=== PATIENT | male | born 1945 | race Caucasian/White ===

== ENCOUNTER 2019-04-25 07:40 | Outpatient (CLI) | payer MEDICARE, OTHER ==
[2019-04-25 10:22] LABS: ALBUMIN 4.1 g/dL (3.2-5.5); ALBUMIN/GLOBULIN RATIO 1.2 (1.0-2.2); BILIRUBIN,TOTAL 0.5 mg/dL (0.2-1.0); CALCIUM 9.2 mg/dL (8.5-10.3); CREATININE 1.3 mg/dL (0.6-1.2); TOTAL PROTEIN 7.6 g/dL (6.7-8.2)
== END 2019-04-25 07:41 | disposition home or self-care (01) ==
LOC: LAB.S 07:40
PROVIDERS: ATTEND Internal Medicine
DX: N40.1 Benign prostatic hyperplasia with lower urinary tract symptoms (principal); N13.8 Other obstructive and reflux uropathy; Z13.220 Encounter for screening for lipoid disorders; Z13.1 Encounter for screening for diabetes mellitus
CPT/HCPCS: 36415; 80053; 80061; 83036; 83721

== ENCOUNTER 2019-05-09 07:50 | Outpatient (CLI) | payer MEDICARE, OTHER ==
[2019-05-09 17:06] LABS: CHOL/HDL RATIO 3.1 (<5.0); CHOLESTEROL 207 mg/dL; HDL CHOLESTEROL 66 mg/dL; LDL CHOLESTEROL,CALCULATED 130 mg/dL; VLDL CHOLESTEROL 11 mg/dL
[2019-05-09 17:28] LABS: HB2 TOTAL 13.5 g/dL; HEMOGLOBIN A1C 0.51 g/dL; HEMOGLOBIN A1C % 5.6 % (4.6-6.2)
== END 2019-05-09 07:51 | disposition home or self-care (01) ==
LOC: LAB.S 07:50
PROVIDERS: ATTEND Internal Medicine
DX: Z13.220 Encounter for screening for lipoid disorders (principal); Z13.1 Encounter for screening for diabetes mellitus; Z79.899 Other long term (current) drug therapy; E78.5 Hyperlipidemia, unspecified
CPT/HCPCS: 36415; 80061; 83036; 83721

== ENCOUNTER 2020-10-20 07:04 | Outpatient (CLI) | payer MEDICARE, OTHER ==
[2020-10-20 14:22] LABS: ALBUMIN 4.2 g/dL (3.2-5.5); ALBUMIN/GLOBULIN RATIO 1.3 (1.0-2.2); BILIRUBIN,TOTAL 0.4 mg/dL (0.2-1.0); CALCIUM 9.3 mg/dL (8.5-10.3); CREATININE 1.4 mg/dL (0.6-1.2); POTASSIUM 4.5 mmol/L (3.5-5.0); TOTAL PROTEIN 7.4 g/dL (6.7-8.2)
[2020-10-20 14:50] LABS: BASOPHILS # (AUTO) 0.1 10^3/uL (0.0-0.1); BASOPHILS % (AUTO) 0.8 %; EOSINOPHILS # (AUTO) 0.3 10^3/uL (0.0-0.7); EOSINOPHILS % (AUTO) 3.2 %; HCT - HEMATOCRIT 41.4 % (42.0-52.0); HGB - HEMOGLOBIN 13.8 g/dL (14.0-18.0); LYMPHOCYTES # (AUTO) 3.3 10^3/uL (1.5-3.5); LYMPHOCYTES % (AUTO) 42.5 %; MEAN CORPUSCULAR HEMOGLOBIN 31.7 pg (27.0-31.0); MEAN CORPUSCULAR HGB CONC 33.3 g/dL (32.0-36.0); MEAN CORPUSCULAR VOLUME 95.2 fL (80.0-94.0); MEAN PLATELET VOLUME 9.6 fL (7.4-11.4); MONOCYTES # (AUTO) 0.6 10^3/uL (0.0-1.0); MONOCYTES % (AUTO) 7.8 %; NEUTROPHILS # (AUTO) 3.6 10^3/uL (1.5-6.6); NEUTROPHILS % (AUTO) 45.4 %; PLT - PLATELET COUNT 224 10^3/uL (130-450); RED BLOOD COUNT 4.35 10^6/uL (4.70-6.10); RED CELL DISTRIBUTION WIDTH 13.6 % (12.0-15.0); WHITE BLOOD COUNT 7.8 x10^3/uL (4.8-10.8)
== END 2020-10-20 07:05 | disposition home or self-care (01) ==
LOC: LAB.S 07:04
PROVIDERS: ATTEND Registered Nurse
DX: R10.9 Unspecified abdominal pain (principal); M54.5 Low back pain; N40.1 Benign prostatic hyperplasia with lower urinary tract symptoms; N13.8 Other obstructive and reflux uropathy
CPT/HCPCS: 36415; 80053; 80061; 83721; 85025

== ENCOUNTER 2020-12-15 12:06 | Outpatient (CLI) | payer MEDICARE, OTHER ==
--- NOTE | 2020-12-15 13:11 | XRAY Report ---
PROCEDURE: Hip w/Pelvis 2-3V LT INDICATIONS: LEFT HIP PAIN TECHNIQUE: AP pelvis with lateral view(s) of the bilateral hip(s). COMPARISON: None. FINDINGS: Bones: No fractures or dislocations. Hip joint osteoarthritis is prominent in this patient, left gr eater than right. It is near severe on the right aerated is severe on the left with [id number] gwyn culation. Pelvic ring appears intact. No suspicious bony lesions. Soft tissues: The visualized bowel gas pattern is normal. No suspicious soft tissue calcifications. IMPRESSION: Asymmetric severe left and near severe right hip joint osteoarthritis. No trauma. Reviewed by: Pradip May MD on 12/15/2020 1:10 PM PDT Approved by: Pradip May MD on 12/15/2020 1:10 PM PDT Station ID: [id number]
== END 2020-12-15 12:07 | disposition home or self-care (01) ==
LOC: DI.S 12:06
PROVIDERS: ATTEND Physician Assistant
DX: M25.552 Pain in left hip (principal); M16.0 Bilateral primary osteoarthritis of hip

== ENCOUNTER 2021-02-04 11:07 | Outpatient (CLI) | payer MEDICARE, OTHER ==
[2021-02-04 11:37] LABS: BASOPHILS # (AUTO) 0.1 10^3/uL (0.0-0.1); BASOPHILS % (AUTO) 0.6 %; EOSINOPHILS # (AUTO) 0.2 10^3/uL (0.0-0.7); EOSINOPHILS % (AUTO) 1.8 %; HCT - HEMATOCRIT 40.1 % (42.0-52.0); HGB - HEMOGLOBIN 14.1 g/dL (14.0-18.0); LYMPHOCYTES # (AUTO) 3.6 10^3/uL (1.5-3.5); LYMPHOCYTES % (AUTO) 41.6 %; MEAN CORPUSCULAR HEMOGLOBIN 32.4 pg (27.0-31.0); MEAN CORPUSCULAR HGB CONC 35.2 g/dL (32.0-36.0); MEAN CORPUSCULAR VOLUME 92.2 fL (80.0-94.0); MONOCYTES # (AUTO) 0.7 10^3/uL (0.0-1.0); MONOCYTES % (AUTO) 8.7 %; NEUTROPHILS % (AUTO) 47.1 %; PLT - PLATELET COUNT 231 10^3/uL (130-450); RED BLOOD COUNT 4.35 10^6/uL (4.70-6.10); RED CELL DISTRIBUTION WIDTH 13.2 % (12.0-15.0); WHITE BLOOD COUNT 8.5 x10^3/uL (4.8-10.8)
[2021-02-04 11:58] LABS: ALBUMIN 4.4 g/dL (3.2-5.5); ALBUMIN/GLOBULIN RATIO 1.5 (1.0-2.2); BILIRUBIN,TOTAL 0.7 mg/dL (0.2-1.0); CALCIUM 9.6 mg/dL (8.5-10.3); CREATININE 1.3 mg/dL (0.6-1.2); POTASSIUM 4.4 mmol/L (3.5-5.0); TOTAL PROTEIN 7.4 g/dL (6.7-8.2)
[2021-02-04 12:29] LABS: ESTIMATED AVERAGE GLUCOSE 114 mg/dL (70-100); HEMOGLOBIN A1c% 5.6 % (4.27-6.07)
[2021-02-04 12:42] LABS: CREATININE,URINE 140.3 mg/dL; MICROALBUM/CREATININE RATIO,UR 5.7 ug/mg (<30.0); MICROALBUMIN,URINE 0.8 mg/dL (0-300.0)
== END 2021-02-04 11:08 | disposition home or self-care (01) ==
LOC: LAB 11:07
PROVIDERS: ATTEND Physician Assistant
DX: Z01.812 Encounter for preprocedural laboratory examination (principal); N40.1 Benign prostatic hyperplasia with lower urinary tract symptoms; Z79.899 Other long term (current) drug therapy; N13.8 Other obstructive and reflux uropathy
CPT/HCPCS: 36415; 80053; 82043; 82570; 83036; 85025

== ENCOUNTER 2021-04-01 06:17 | Day surgery (SDC) | payer MEDICARE, OTHER ==
[~2021-04-01 06:17] MED LIST: ACETAMINOPHEN 500 MG TABLET PO ONE; CEFAZOLIN SODIUM IN 0.9 % NACL 2 GM/100 ML BAG IV ONE; CELECOXIB 100 MG CAPSULE PO ONE; DEXAMETHASONE 10 MG/ML VIAL ONE
[2021-04-01] MEDS ORDERED: LACTATED RINGERS 1,000 ML IV ONE ×2 (06:45→10:36)
--- NOTE | 2021-04-01 07:12 | ANESTHESIA ---
Pre-Anesthesia VS, & Labs - Diagnosis left hip osteoarthritis - Procedure left total hip arthroplasty Vital Signs: Temp Pulse Resp BP Pulse Ox 36 C L 72 18 141/70 H 98 04/01/21 06:28 04/01/21 06:28 04/01/21 06:28 04/01/21 06:28 04/01/21 06:28 Height: 5 ft 7 in Weight (kg): 83.7 kg Body Mass Index: 28.9 BMI Classification: Overweight - NPO >8 hours Home Medications and Allergies Home Medications: Ambulatory Orders Tamsulosin [Flomax] 0.4 mg PO DAILY 03/25/21 Tamsulosin [Flomax] 0.4 mg PO DAILY 03/25/21 Allergies/Adverse Reactions: Allergies Allergy/AdvReac Type Severity Reaction Status Date / Time No Known Drug Allergies Allergy Verified 03/25/21 13:14 Anes History & Medical History - Anesthetic History Anesthesia Complications: reports: No previous complications - Medical History Cardiovascular: reports: None Pulmonary: reports: None Gastrointestinal: reports: None Urinary: reports: Benign prostate hypertrophy Musculoskeletal: reports: Osteoarthritis Endocrine/Autoimmune: reports: None Skin: reports: None History of Cancer?: No - Surgical History General: reports: Appendectomy, Colonoscopy Exam General: Alert, Oriented x3, Cooperative Dental: WNL Mouth Opening: Greater than 4 Fingerbreadths Mallampati classification: II Thyromental Distance: greater than 6 cm Respiratory: Lungs clear Cardiovascular: Regular rate, Normal S1, Normal S2 Plan Anesthesia Type: Spinal, Fascia Iliaca Block Consent for Procedure(s) Verified and Reviewed: Yes Code Status: Attempt Resuscitation ASA classification: 2-Mild systemic disease Is this case an emergency?: No
[2021-04-01] MEDS ORDERED: ONDANSETRON 4 MG/2 ML VIAL IVP PRN ×2 (07:15→07:25)
[2021-04-01] MEDS ORDERED: ePHEDrine 50 MG/ML VIAL IVP PRN (07:15)
[2021-04-01] MEDS ORDERED: METOCLOPRAMIDE 10 MG/2 ML VIAL IVP PRN (07:15)
[2021-04-01] MEDS ORDERED: ATROPINE ABBOJECT 1 MG/10 ML SYRINGE IVP PRN (07:15)
[2021-04-01] MEDS ORDERED: HYDROmorphone 0.5 MG/0.5 ML SYRINGE IVP PRN (07:15)
[2021-04-01] MEDS ORDERED: fentaNYL 100 MCG/2 ML VIAL IVP PRN (07:15)
[2021-04-01] MEDS ORDERED: MORPHINE 2 MG/ML CARPUJECT IVP PRN (07:15)
[2021-04-01] MEDS ORDERED: NALOXONE 0.4 MG/ML VIAL IVP PRN (07:15)
[2021-04-01] MEDS ORDERED: BUPIVACAINE 0.25% PF 30 ML VIAL ONE (07:16)
[2021-04-01] MEDS ORDERED: VANCOMYCIN 1 GM VIAL ONE (07:16)
[2021-04-01] MEDS ORDERED: DOCUSATE SODIUM 100 MG CAPSULE PO PRN (07:25)
[2021-04-01] MEDS ORDERED: SODIUM CHLORIDE FLUSH 0.9% 10 ML SYRINGE IVP PRN (07:25)
[2021-04-01] MEDS ORDERED: PROPOFOL 500 MG/50 ML 500 MG/50 ML VIAL ONE ×2 (07:26→09:18)
[2021-04-01] MEDS ORDERED: MIDAZOLAM 2 MG/2 ML VIAL ONE (07:26)
[2021-04-01] MEDS ORDERED: TRANEXAMIC ACID 1,000 MG/10 ML VIAL ONE ×2 (07:27→09:50)
[2021-04-01] MEDS ORDERED: BUPIVACAINE 0.5% PF 10 ML VIAL ONE (07:34)
[2021-04-01] MEDS ORDERED: ACETAMINOPHEN 1,000 MG/100 ML 100 ML IV ONE (07:55)
[2021-04-01] MEDS ORDERED: ePHEDrine 50 MG/ML VIAL IVP ONE (07:56)
[2021-04-01] MEDS ORDERED: NS W/20 MEQ KCL 1,000 ML IV SCH ×2 (08:00→22:46)
[2021-04-01] MEDS ORDERED: LACTATED RINGERS 1,000 ML IV SCH (08:00)
[2021-04-01] MEDS ORDERED: PHENYLEPHRINE 10 MG/ML VIAL ONE (08:11)
[2021-04-01] MEDS ORDERED: VANCOMYCIN 1 GM VIAL MC ONE (08:40)
[2021-04-01] MEDS ORDERED: BUPIVACAINE 0.25% PF 30 ML VIAL SUBQ ONE (08:41)
[2021-04-01] MEDS ORDERED: CELECOXIB 100 MG CAPSULE PO SCH (09:00)
[2021-04-01] MEDS ORDERED: ROPIVACAINE 0.5% PF 20 ML AMPULE ONE (10:13)
[2021-04-01] MEDS ORDERED: DEXAMETHASONE 4 MG/ML VIAL ONE (10:14)
--- NOTE | 2021-04-01 10:15 | OPERATIVE REPORT ---
Operative Report - General Procedure Date: 04/01/21 Planned Procedure: Left total hip replacement Pre-Op Diagnosis: Osteoarthritis left hip Procedure Performed: Left total hip replacement: Mckoy [employer] Nephew #5 anthology femoral component, 54 mm R3 3-hole acetabular cup, single cancellous acetabular screw, neutral polyethylene acetabular liner, standard neck offset, 36 mm Oxinium +4 mm femoral head Post Op Diagnosis: Same as preoperative diagnosis - Procedure Note Primary Surgeon: Inocencio Romero MD Secondary Surgeon: Tiago RIVERA Anesthesia Technique: Regional block, Spinal Estimated Blood Loss (mL): 150 Indications: 75-year-old man with pain and disability associated with osteoarthritis left hip. He has had progressive and marked pain now making it hard to do activities of daily living and also activities that enhance quality of life. He had painful and restricted motion left hip. His x-rays showed advanced joint space narrowing left hip, subchondral cyst and some osteophytes consistent with advanced osteoarthritis left hip. He has tried some nonoperative treatment without improvement. Findings: There was a loss of articular cartilage to the entire femoral head, loss of articular cartilage to the acetabular dome. He had good bone quality for press- fit. Complications: None - Other Other Information/Narrative: After satisfactory spinal anesthesia had been achieved, the patient was placed in a lateral decubitus position with the left hip facing superiorly. He was secured in the lateral decubitus position using a pegboard with 2 post securing the torso and 2 posts securing the pelvis. The left hip and left lower extremity were prepped and draped in a sterile manner in the usual fashion. A timeout procedure was performed by the entire operating room team and all were in agreement. A longitudinal incision was made about the lateral left hip beginning at the vastus lateralis ridge of the proximal femur and extending it proximally approximately 3 fingerbreadths above the trochanter. The subcutaneous tissue and fascia crystal were split in line with the incision. The anterior one third of the gluteus medius was detached at the trochanteric inse rtion. The gluteus medius was retracted medially. The hip capsule was exposed and was split in a T-shaped fashion. Part of the anterior hip capsule was excised. The femoral head was dislocated with flexion, adduction and external rotation. An osteotomy was done to the femoral neck using a osteotomy guide. Retractors were placed behind the femoral neck to protect the soft tissues from the oscillating saw. The proximal femur was retracted. 2 acetabular retractors were placed one anteriorly directly against bone to reduce any soft tissue impingement to femoral nerve. The second retractor was placed more posteriorly directly against bone and preventing any impingement against sciatic nerve. The acetabulum was prepared with a large curette. Medialization of the acetabulum was performed with a small acetabular reamer and then widening was done up to a 53 mm reamer the final reamers were placed in approximately 20 degrees anteversion and 45 degrees of abduction. A trial acetabular component was inserted, 53 mm and this fit well. A permanent 54 mm R3 acetabular 3-hole component was then impacted in 40 degrees of abduction and approximately 20 degrees of anteversion. This had good fixation to push pull and rotation. A single 30 mm superior acetabular screw was inserted. The stability of the acetabular cup was very good. A trial acetabular liner was inserted into the cup. The femoral canal was opened with a box osteotome, starting reamer and then a short broach. Broaching was carried out to a #5. Calcar reaming was performed. Good fit and stability to the #4 stem was achieved. Trial reduction was performed. Hip motion was very good and the hip was stable to dislocation maneuvers. The trial components were removed. A permanent acetabular liner was impacted into the acetabular cup. The #5 Anthology femoral stem was impacted and fully seated. The femoral head was impacted on the femoral trunnion. There was good stability to push pull and rotation. A 36 mm +4 head was impacted on the trunnion. The hip was reduced, had good leg length tension and good stability with dislocation maneuvers. 3-minute lavage with dilute Betadine was performed. The hip abductors were repaired to the trochanter with 2 Arthrex fiber minh suture anchors and #1 stratofix suture. The fascia crystal was closed with #1 stratofix. The subcutaneous tissue was closed with 2-0 stratofix. The skin was closed with a 3-0 Monocryl subcuticular closure and Dermabond. He tolerated the procedure well. A physician senior court office assistant was utilized during the procedure to provide retraction and protection of neurovascular structures as well as to facilitate dislocation and reduction of the hip joint.
--- NOTE | 2021-04-01 11:12 | XRAY Report ---
PROCEDURE: Pelvis 1 View INDICATIONS: POSTOP TECHNIQUE: 1 view(s) of the pelvis acquired. COMPARISON: None. FINDINGS: Bones: Patient is status post left total hip arthroplasty. Left hip alignment is anatomic. Moderate right hip joint osteophytic changes are seen. No fractures or dislocations. No suspicious bony lesio ns. Soft tissues: Expected postsurgical changes are noted in lateral left hip soft tissue. Visualized bow el gas pattern is normal. No suspicious soft tissue calcifications. IMPRESSION: Postop changes from left total hip arthroplasty with anatomic hip alignment. Reviewed by: Kraig Lucas MD on 04/01/2021 11:11 AM PDT Approved by: Kraig Lucas MD on 04/01/2021 11:11 AM PDT Station ID: [id number]
--- NOTE | 2021-04-01 11:26 | PHARMACY PROGRESS NOTE ---
- Best Possible Medication History Admit Date and Time: Processed by: Nursing Medication History completed: Yes Patient Interview: Completed (MED REC COMPLEED BY NURSING) As the person ultimately responsible for medication therapy, providers are able to order a medication from an existing home medication list in [facility] via the "Reconcile Routine" prior to Confirmation of that medication by network support. Such practice is discouraged except when the physician, in their clinical judgment, deems that a medical need exists for a medication without regard to previous use.
--- NOTE | 2021-04-01 11:28 | CONSULTATION NOTE ---
Referring Provider Name of Referring Provider:: Dr. Hendricks Consult Date: 04/01/21 Chief Complaint - Chief Complaint Chief Complaint: feel tired, s/p of left total hip replacement History of Present Illness - Admitted From Admitted From:: medical floor - History Obtained From Records Reviewed: [facility] History obtained from: pt Exam Limitations: no - History of Present Illness HPI Comment/Other: This is a 75-Years old male With a past medical history significant for BPH, osteoarthritis, chronic kidney disease, Chronic vision loss, who was just s/p Of left total hip replacement. Medical team was consulted for medical management for this patient. Patient is comfortable at the bed, he denies pain. He report he feel tired and hope he has some sleep now. History - Past Medical History Cardiovascular: reports: None Respiratory: reports: None Endocrine/Autoimmune: reports: None GI: reports: None : reports: Benign prostate hypertrophy HEENT: reports: Chronic vision loss Psych: reports: None Musculoskeletal: reports: Osteoarthritis Derm: reports: None MRSA Hx?: No - Past Surgical History General: reports: Appendectomy, Colonoscopy Meds/Allgy - Home Medications Home Medications: Ambulatory Orders Medication Instructions Recorded Confirmed Tamsulosin [Flomax] 0.4 mg PO DAILY 03/25/21 04/01/21 - Allergies Allergies/Adverse Reactions: Allergies Allergy/AdvReac Type Severity Reaction Status Date / Time No Known Drug Allergies Allergy Verified 03/25/21 13:14 Review of Systems - Constitutional Constitutional: reports: Fatigue. denies: Fever - Eyes Eyes: denies: Pain - Ears, Nose & Throat Ears, Nose & Throat: denies: Ear pain - Cardiovascular Cariovascular: denies: Chest pain, Exertional dyspnea, Decr. exercise tolerance - Respiratory Respiratory: denies: Cough, SOB at rest, SOB with exertion - Gastrointestinal Gastrointestinal: denies: Abdominal pain, Diarrhea, Nausea, Vomiting - Genitourinary Genitourinary: denies: Dysuria - Musculoskeletal Musculoskeletal: denies: Muscle pain - Integumentary Integumentary: denies: Rash - Neurological Neurological: denies: Focal weakness, Headache, Numbness, Seizures, Incoordination, Slurred speech - Psychiatric Psychiatric: denies: Depression Exam - Vital Signs Vital Signs: Vital Signs x48h Temp Pulse Resp BP Pulse Ox 04/01/21 11:26 36.1 C L 62 17 110/56 L 97 04/01/21 11:10 36.4 C L 63 14 108/61 96 04/01/21 11:05 36.4 C L 63 15 108/64 96 04/01/21 11:00 36.5 C 67 15 117/68 99 04/01/21 10:55 36.5 C 75 18 110/69 97 04/01/21 10:50 36.4 C L 73 14 99/60 97 04/01/21 10:45 36.5 C 67 14 110/61 100 04/01/21 10:40 36.4 C L 66 14 106/54 L 100 04/01/21 10:36 36.4 C L 61 14 101/61 100 04/01/21 06:28 36 C L 72 18 141/70 H 98 - Physical Exam General Appearance: positive: No acute distress, Alert. negative: Lethargic Eyes Bilateral: positive: Normal inspection, PERRL, No lid inflammation ENT: positive: ENT inspection nml, No signs of dehydration. negative: Purulent nasal drainage Neck: positive: Nml inspection, Trachea midline. negative: Thyromegaly, Tracheal deviation Respiratory: positive: Chest non-tender, No respiratory distress. negative: Wheezes Cardiovascular: positive: Regular rate & rhythm, No murmur. negative: Tachyc ardia, Bradycardia, Systolic murmur, Diastolic murmur Peripheral Pulses: positive: 2+ Abdomen: positive: Non-tender, Nml bowel sounds, No distention. negative: Tenderness Back: positive: Nml inspection Skin: positive: Color nml, Warm, Dry. negative: Cyanosis Extremities: positive: Non-tender, Nml appearance. negative: Calf tenderness Neurologic/Psychiatric: positive: Oriented x3, Sensation nml. negative: Weakness, Sensory loss, Facial droop, Slurred/abnml speech, Depressed mood/affect Conclusion/Plan - Problem List (1) Osteoarthritis Conclusion/Plan: Patient has a history of osteoarthritis, we will continue pain, work with PT/OT (2) Status post total hip replacement, left Conclusion/Plan: pt just had left total hip replacement. ordered lab test, Continue lab monitor. We will continue pain control, we have physical therapist and occupational therapist evaluation and treatment for pt. DVT prophylaxis is per surgeon, patient is on Lovenox now. Patient is expected to be discharged on tomorrow per surgeon. (3) CKD (chronic kidney disease) Conclusion/Plan: Patient has a history of CKD stage III. It is stable now. We will continue hydration, continue lab monitor. Avoid nephrotoxic agent. (4) BPH (benign prostatic hyperplasia) Conclusion/Plan: We Will resume home Flomax - Lab Results Fish Bones: 04/01/21 11:50 04/01/21 11:50
[2021-04-01 11:55] LABS: BASOPHILS % (AUTO) 0.3 %; EOSINOPHILS % (AUTO) 0.1 %; HGB - HEMOGLOBIN 13.2 g/dL (14.0-18.0); LYMPHOCYTES # (AUTO) 1.4 10^3/uL (1.5-3.5); LYMPHOCYTES % (AUTO) 15.4 %; MEAN CORPUSCULAR HEMOGLOBIN 32.5 pg (27.0-31.0); MEAN CORPUSCULAR HGB CONC 33.8 g/dL (32.0-36.0); MEAN CORPUSCULAR VOLUME 96.1 fL (80.0-94.0); MEAN PLATELET VOLUME 9.3 fL (7.4-11.4); MONOCYTES # (AUTO) 0.1 10^3/uL (0.0-1.0); MONOCYTES % (AUTO) 1.3 %; NEUTROPHILS # (AUTO) 7.4 10^3/uL (1.5-6.6); NEUTROPHILS % (AUTO) 82.6 %; PLT - PLATELET COUNT 184 10^3/uL (130-450); RED BLOOD COUNT 4.06 10^6/uL (4.70-6.10); RED CELL DISTRIBUTION WIDTH 13.4 % (12.0-15.0)
[2021-04-01 12:08] LABS: CREATININE 1.4 mg/dL (0.6-1.2); POTASSIUM 4.2 mmol/L (3.5-5.0)
[2021-04-01] MEDS: ACETAMINOPHEN 500 MG TABLET PO SCH ×2 (12:58→19:11)
[2021-04-01] MEDS: ethyl alcohoL 62% SWAB AMPULE NAS SCH ×2 (12:58→21:28)
[2021-04-01] MEDS: SODIUM CHLORIDE FLUSH 0.9% 10 ML SYRINGE IVP SCH ×2 (12:58→15:37)
--- NOTE | 2021-04-01 12:59 | ANESTHESIA POST OP EVALUATION ---
Anesthesia Post Eval - Post Anesthesia Eval Vitals: Last Vital Signs Temp 36.1 C L 04/01/21 11:26 Pulse 62 04/01/21 11:30 Resp 17 04/01/21 11:30 BP 112/59 L 04/01/21 11:30 Pulse Ox 100 04/01/21 11:30 CV Function Including HR & BP: Stable Pain Control: Satisfactory Nausea & Vomiting: Negative Mental Status: Baseline Respiratory Status: Airway Patent Hydration Status: Satisfactory Anesthesia Complications: None
[2021-04-01] MEDS: oxyCODONE 5 MG TABLET PO PRN ×2 (14:24→19:11)
[2021-04-01] MEDS: ceFAZolin 2 GM in SODIUM CHLORIDE 0.9% 100ML 100 ML IV SCH ×2 (14:34→21:28)
[2021-04-01] MEDS: MORPHINE 2 MG/ML CARPUJECT IVP PRN ×2 (15:36→21:28)
[2021-04-02] MEDS: ACETAMINOPHEN 500 MG TABLET PO SCH ×3 (00:48→12:00)
[2021-04-02] MEDS: SODIUM CHLORIDE FLUSH 0.9% 10 ML SYRINGE IVP SCH ×2 (00:48→08:07)
[2021-04-02] MEDS: oxyCODONE 5 MG TABLET PO PRN ×2 (00:48→08:06)
[2021-04-02] MEDS: MORPHINE 2 MG/ML CARPUJECT IVP PRN ×2 (03:39→10:29)
[2021-04-02 04:52] LABS: BASOPHILS # (AUTO) 0.1 10^3/uL (0.0-0.1); BASOPHILS % (AUTO) 0.3 %; HCT - HEMATOCRIT 34.9 % (42.0-52.0); LYMPHOCYTES # (AUTO) 2.1 10^3/uL (1.5-3.5); LYMPHOCYTES % (AUTO) 10.7 %; MEAN CORPUSCULAR HEMOGLOBIN 32.1 pg (27.0-31.0); MEAN CORPUSCULAR HGB CONC 34.4 g/dL (32.0-36.0); MEAN CORPUSCULAR VOLUME 93.3 fL (80.0-94.0); MEAN PLATELET VOLUME 9.2 fL (7.4-11.4); MONOCYTES % (AUTO) 5.4 %; NEUTROPHILS % (AUTO) 82.9 %; PLT - PLATELET COUNT 208 10^3/uL (130-450); RED BLOOD COUNT 3.74 10^6/uL (4.70-6.10); RED CELL DISTRIBUTION WIDTH 13.2 % (12.0-15.0); WHITE BLOOD COUNT 19.2 x10^3/uL (4.8-10.8)
[2021-04-02 05:00] LABS: CALCIUM 8.9 mg/dL (8.5-10.3); CREATININE 1.3 mg/dL (0.6-1.2); POTASSIUM 4.6 mmol/L (3.5-5.0)
[2021-04-02] MEDS: ethyl alcohoL 62% SWAB AMPULE NAS SCH (08:07)
[2021-04-02 08:22] LABS: BILIRUBIN,URINE NEGATIVE (NEGATIVE); GLUCOSE, URINE (UA) NEGATIVE (NEGATIVE); KETONES,URINE (UA) NEGATIVE (NEGATIVE); LEUKOCYTE ESTERASE, URINE NEGATIVE (NEGATIVE); NITRITE,URINE NEGATIVE (NEGATIVE); OCCULT BLOOD,URINE NEGATIVE (NEGATIVE); PROTEIN,URINE NEGATIVE (NEGATIVE); UROBILINOGEN,URINE 0.2 (NORMAL) E.U./dL (NORMAL)
[2021-04-02 08:32] LABS: BACTERIA,URINE None Seen /HPF (None Seen); CLARITY,URINE CLEAR (CLEAR); RBC,URINE None Seen /HPF (0-5); SQUAMOUS EPITHELIAL CELL,UR NONE SEEN (<= Few)
[2021-04-02] MEDS ORDERED: TAMSULOSIN 0.4 MG CAPSULE PO SCH (09:00)
[2021-04-02] MEDS ORDERED: ENOXAPARIN 40 MG/0.4 ML SYRINGE SUBQ SCH (09:00)
--- NOTE | 2021-04-02 09:11 | PROVIDER PROGRESS NOTE ---
Subjective - General Procedure Date: 04/01/21 Post Op Days: 1 - Review of Systems Wound/Incisions: positive: Dressing dry and intact General: positive: No symptoms Pulmonary: positive: No symptoms Cardiovascular: positive: No symptoms Gastrointestinal: positive: No symptoms Genitourinary: positive: No symptoms Psychiatric: positive: No symptoms - Other Other Information/Narrative: Patient is postop day 1 left total hip arthroplasty. He is doing very well. His pain is well controlled. He denies chest pain, shortness of breath, nausea or vomiting. He has no neurovascular symptoms other than some numbness in the femoral nerve distribution. He had a fascia lot of block. Objective - Patient Data Vital Signs: Vital Signs x48h Temp Pulse Resp BP Pulse Ox 04/02/21 08:12 36.4 C L 77 18 133/48 H 96 04/02/21 05:00 37.0 C 78 20 115/57 L 92 Weight: Weight 03/31/21 04/01/21 04/02/21 23:59 23:59 23:59 Weight (kg) 83.7 kg Intake & Output: Intake and Output Totals x24h 03/31/21 04/01/21 04/02/21 23:59 23:59 23:59 Intake Total 1291.667 568.333 Output Total 450 400 Balance 841.667 168.333 - Lab Results Lab Results: 04/02/21 04:34 04/02/21 04:34 Other Lab Results: Lab Results x24hrs 04/02/21 04/02/21 04/02/21 Range/Units 08:02 04:34 04:34 WBC 19.2 H (4.8-10.8) x10^3/uL RBC 3.74 L (4.70-6.10) 10^6/uL Hgb 12.0 L (14.0-18.0) g/dL Hct 34.9 L (42.0-52.0) % MCV 93.3 (80.0-94.0) fL MCH 32.1 H (27.0-31.0) pg MCHC 34.4 (32.0-36.0) g/dL RDW 13.2 (12.0-15.0) % Plt Count 208 (130-450) 10^3/uL MPV 9.2 (7.4-11.4) fL Neut # (Auto) 16.0 H (1.5-6.6) 10^3/uL Lymph # (Auto) 2.1 (1.5-3.5) 10^3/uL [place] # (Auto) 1.0 (0.0-1.0) 10^3/uL Eos # (Auto) 0.0 (0.0-0.7) 10^3/uL Baso # (Auto) 0.1 (0.0-0.1) 10^3/uL Absolute Nucleated RBC 0.00 x10^3/uL Nucleated RBC % 0.0 /100WBC Sodium 140 (135-145) mmol/L Potassium 4.6 (3.5-5.0) mmol/L Chloride 106 (101-111) mmol/L Carbon Dioxide 23 (21-32) mmol/L Anion Gap 11.0 (6-13) BUN 26 H (6-20) mg/dL Creatinine 1.3 H (0.6-1.2) mg/dL Estimated GFR (MDRD) 54 L (>89) Glucose 154 H (70-100) mg/dL Calcium 8.9 (8.5-10.3) mg/dL Urine Color YELLOW Urine Clarity CLEAR (CLEAR) Urine pH 5.0 (5.0-7.5) PH Ur Specific [place] 1.020 (1.002-1.030) Urine Protein NEGATIVE (NEGATIVE) mg/dL Urine Glucose (UA) NEGATIVE (NEGATIVE) mg/dL Urine Ketones NEGATIVE (NEGATIVE) mg/dL Urine Occult Blood NEGATIVE (NEGATIVE) Urine Nitrite NEGATIVE (NEGATIVE) Urine Bilirubin NEGATIVE (NEGATIVE) Urine Urobilinogen 0.2 (NORMAL) (NORMAL) E.U./dL Ur Leukocyte Esterase NEGATIVE (NEGATIVE) Urine RBC None Seen (0-5) /HPF Urine WBC 4-5 (0-3) /HPF Ur Squamous Epith Cells NONE SEEN (<= Few) Urine Bacteria None Seen (None Seen) /HPF Urine Culture Comments NOT INDICATED 04/01/21 04/01/21 Range/Units 11:50 11:50 WBC 9.0 (4.8-10.8) x10^3/uL RBC 4.06 L (4.70-6.10) 10^6/uL Hgb 13.2 L (14.0-18.0) g/dL Hct 39.0 L (42.0-52.0) % MCV 96.1 H (80.0-94.0) fL MCH 32.5 H (27.0-31.0) pg MCHC 33.8 (32.0-36.0) g/dL RDW 13.4 (12.0-15.0) % Plt Count 184 (130-450) 10^3/uL MPV 9.3 (7.4-11.4) fL Neut # (Auto) 7.4 H (1.5-6.6) 10^3/uL Lymph # (Auto) 1.4 L (1.5-3.5) 10^3/uL [place] # (Auto) 0.1 (0.0-1.0) 10^3/uL Eos # (Auto) 0.0 (0.0-0.7) 10^3/uL Baso # (Auto) 0.0 (0.0-0.1) 10^3/uL Absolute Nucleated RBC 0.00 x10^3/uL Nucleated RBC % 0.0 /100WBC Sodium 139 (135-145) mmol/L Potassium 4.2 (3.5-5.0) mmol/L Chloride 103 (101-111) mmol/L Carbon Dioxide 24 (21-32) mmol/L Anion Gap 12.0 (6-13) BUN 25 H (6-20) mg/dL Creatinine 1.4 H (0.6-1.2) mg/dL Estimated GFR (MDRD) 49 L (>89) Glucose 147 H (70-100) mg/dL Calcium 9.0 (8.5-10.3) mg/dL Urine Color Urine Clarity (CLEAR) Urine pH (5.0-7.5) PH Ur Specific [place] (1.002-1.030) Urine Protein (NEGATIVE) mg/dL Urine Glucose (UA) (NEGATIVE) mg/dL Urine Ketones (NEGATIVE) mg/dL Urine Occult Blood (NEGATIVE) Urine Nitrite (NEGATIVE) Urine Bilirubin (NEGATIVE) Urine Urobilinogen (NORMAL) E.U./dL Ur Leukocyte Esterase (NEGATIVE) Urine RBC (0-5) /HPF Urine WBC (0-3) /HPF Ur Squamous Epith Cells (<= Few) Urine Bacteria (None Seen) /HPF Urine Culture Comments - Current Medications Current Medications: Current Medications Generic Name Dose Route Start Last Admin Trade Name Freq PRN Reason Stop Dose Admin Acetaminophen 1,000 mg 04/01/21 12:00 04/02/21 08:06 Acetaminophen 500 Mg Tablet PO 1,000 mg Q6HR ANDRADE Administration Alcohol 1 amp 04/01/21 09:00 04/02/21 08:07 Ethyl Alcohol 62% Swab Ampule GAEL 1 amp BID ANDRADE Administration Enoxaparin Sodium 40 mg 04/02/21 09:00 04/02/21 08:07 Enoxaparin 40 Mg/0.4 Ml Syringe SUBQ 40 mg DAILY ANDRADE Administration Potassium Chloride/Sodium Chloride 1,000 mls @ 75 mls/hr 04/01/21 22:46 04/02/21 00:47 Normal Saline 0.9% W/20 Meq Kcl IV 75 mls/hr .[id number] ANDRADE Administration Morphine Sulfate 2 mg 04/01/21 13:46 04/02/21 03:39 Morphine 2 Mg/Ml Carpuject IVP 2 mg Q2HR PRN Administration PAIN Oxycodone HCl 5 mg 04/01/21 07:25 04/02/21 08:06 Oxycodone 5 Mg Tablet PO 5 mg Q6HR PRN Administration PAIN Sodium Chloride 10 ml 04/01/21 09:00 04/02/21 08:07 Sodium Chloride Flush 0.9% 10 Ml Syringe IVP Not Given 0100,0900,1700 [facility] Tamsulosin HCl 0.4 mg 04/02/21 09:00 04/02/21 08:06 Tamsulosin 0.4 Mg Capsule PO 0.4 mg DAILY ANDRADE Administration - Physical Exam Wound/Incisions: positive: Dressing dry and intact General Appearance: positive: No acute distress Neurologic/Psychiatric: positive: Oriented x3 Comments/Other: There is no clinical deformity left leg. Neurovascular is intact. Sciatic and femoral nerve function intact left leg. His dressing is dry and intact. There is no hematoma about left hip. Impression/Plan - Problem List Problem List: Status post left total hip arthroplasty The plan is physical and occupational therapy today, discharged to home today, discharge instructions as per our joint camp book. He should ambulate with a walker, weightbearing as tolerated left leg. He may shower with dressing in place. He has a return appointment at your office for next week. His pain medications have been prescribed preoperatively; include Tylenol, ibuprofen, tramadol and oxycodone. The schedule for these medications have been given to him preoperatively. He is to call us before scheduled appointment, if he develops chest pain, shortness of breath, drainage, fever or chills. His lab is stable, glucose elevated but acceptable for discharge.
[2021-04-02] MEDS ORDERED: KETOROLAC 15 MG/ML VIAL IVP STA (09:22)
[2021-04-02] MEDS ORDERED: HYDROcod/ACETAM 5/325 MG TABLET PO PRN (09:22)
[2021-04-02] MEDS ORDERED: HYDROcod/ACETAM 10 MG/325 MG TABLET PO PRN (09:22)
[2021-04-02 12:40] VITALS: BP 142/55
== END 2021-04-02 13:30 | disposition home or self-care (01) ==
LOC: SDS 06:17 → MS3 11:11 → SDS 04-02 13:30
PROVIDERS: ATTEND Orthopaedic Surgery
PROC: 0SRB02Z Replacement of Left Hip Joint with Metal on Polyethylene Synthetic Substitute, Open Approach (ICD-10-PCS; principal; 2021-04-01 07:30)
DX: M16.12 Unilateral primary osteoarthritis, left hip (principal); N18.30 Chronic kidney disease, stage 3 unspecified; N40.0 Benign prostatic hyperplasia without lower urinary tract symptoms; N18.9 Chronic kidney disease, unspecified; H54.7 Unspecified visual loss; Z79.899 Other long term (current) drug therapy
CPT/HCPCS: 27130; 36415; 72170; 80048; 81001; 85025; 97162; 97165; 97530; A9270; C1713; C1776; J0131; J0690; J1650; J3370; J7120; 87086

== ENCOUNTER 2021-04-04 09:17 | Emergency (ER) | payer MEDICARE, OTHER ==
[2021-04-04] MEDS ORDERED: fentaNYL 100 MCG/2 ML VIAL IVP STA ×2 (09:53→12:29)
[2021-04-04] MEDS ORDERED: ONDANSETRON 4 MG/2 ML VIAL IVP STA (09:54)
[2021-04-04 10:20] LABS: BASOPHILS % (AUTO) 0.2 %; HCT - HEMATOCRIT 37.6 % (42.0-52.0); HGB - HEMOGLOBIN 12.7 g/dL (14.0-18.0); LYMPHOCYTES % (AUTO) 13.3 %; MEAN CORPUSCULAR HEMOGLOBIN 32.1 pg (27.0-31.0); MEAN CORPUSCULAR HGB CONC 33.8 g/dL (32.0-36.0); MEAN CORPUSCULAR VOLUME 94.9 fL (80.0-94.0); MEAN PLATELET VOLUME 9.5 fL (7.4-11.4); MONOCYTES # (AUTO) 1.5 10^3/uL (0.0-1.0); NEUTROPHILS # (AUTO) 11.5 10^3/uL (1.5-6.6); PLT - PLATELET COUNT 194 10^3/uL (130-450); RED BLOOD COUNT 3.96 10^6/uL (4.70-6.10); RED CELL DISTRIBUTION WIDTH 13.3 % (12.0-15.0); WHITE BLOOD COUNT 15.2 x10^3/uL (4.8-10.8)
[2021-04-04 10:28] LABS: ALBUMIN 3.8 g/dL (3.2-5.5); BILIRUBIN,TOTAL 0.8 mg/dL (0.2-1.0); CALCIUM 9.1 mg/dL (8.5-10.3); CREATININE 1.2 mg/dL (0.6-1.2); POTASSIUM 4.9 mmol/L (3.5-5.0); TOTAL PROTEIN 7.6 g/dL (6.7-8.2)
--- NOTE | 2021-04-04 11:05 | Ultrasound Report ---
PROCEDURE: Duplex Ext Veins Left INDICATIONS: post operative pain TECHNIQUE: Real-time imaging, as well as color and pulse Doppler interrogation, were performed of the lower extr emity deep veins from the inguinal ligament to the popliteal fossa. COMPARISON: None. FINDINGS: The deep veins are normally compressible, and free of intraluminal thrombus. Color and pu lse Doppler demonstrate normal phasic intraluminal flow. There is normal augmentation response to di stal compression maneuver. IMPRESSION: No evidence of left lower extremity deep venous thrombosis. Reviewed by: Earnest Hartman DO on 04/04/2021 10:03 AM DANA Approved by: Earnest Hartman DO on 04/04/2021 10:03 AM DANA Station ID: [id number]
[2021-04-04 12:17] LABS: BILIRUBIN,URINE NEGATIVE (NEGATIVE); GLUCOSE, URINE (UA) NEGATIVE (NEGATIVE); KETONES,URINE (UA) 15 mg/dL (NEGATIVE); LEUKOCYTE ESTERASE, URINE NEGATIVE (NEGATIVE); NITRITE,URINE NEGATIVE (NEGATIVE); OCCULT BLOOD,URINE SMALL (NEGATIVE); PROTEIN,URINE TRACE mg/dL (NEGATIVE); UROBILINOGEN,URINE 0.2 (NORMAL) E.U./dL (NORMAL)
[2021-04-04 12:22] LABS: CLARITY,URINE CLEAR (CLEAR)
[2021-04-04 12:27] LABS: BACTERIA,URINE Rare /HPF (None Seen); RBC,URINE 0-5 /HPF (0-5); SQUAMOUS EPITHELIAL CELL,UR RARE Squamous (<= Few); WBC,URINE 0-3 /HPF (0-3)
[2021-04-04] MEDS ORDERED: oxyCODONE 5 MG TABLET PO STA (13:22)
[2021-04-04] MEDS ORDERED: IOVERSOL 320 100 ML VIAL IVP ONE ×2 (13:25→15:17)
[2021-04-04] MEDS ORDERED: SODIUM CHLORIDE 0.9% 500 ML IV STA (13:32)
--- NOTE | 2021-04-04 14:21 | CT Report ---
PROCEDURE: ANGIO CHEST W/WO INDICATIONS: Tachycardia, recent surgery, CONTRAST: IV CONTRAST: Optiray 320 ml: 100 PO CONTRAST: *NO PO CONTRAST TECHNIQUE: After the administration of intravenous contrast, 2 mm axial images were acquired from the pulmonary apices to the posterior costophrenic angles during the arterial phase. In addition, 1 mm lung kernel and 5 mm soft tissue kernel reconstructions were performed. 3-dimensional coronal oblique maximum int ensity projection (MIP) reformats, 8 mm axial MIP, and 5 mm coronal and sagittal MPR reformats were t hen performed through the thorax. For radiation dose reduction, the following was used: automated exp osure control, adjustment of mA and/or kV according to patient size. COMPARISON: Limited comparison with lower extremity duplex same day. FINDINGS: Image quality: Bolus is somewhat limited for evaluation of pulmonary embolus. Evaluation is limited o f the distal segmental and subsegmental vessels given incomplete opacification. There is mild motion artifact as well. Pulmonary arteries: Pulmonary arteries are normal in size, and demonstrate no intraluminal filling d efects to suggest central pulmonary embolism through the proximal segmental level. The distal segment al and subsegmental vessels are inadequately evaluated.. Lungs and pleura: Lungs are clear. No pleural effusions or pneumothorax. There is dependent atelec tasis. Central and peripheral airways are patent. Mediastinum: Heart size is normal, without pericardial effusion. Coronary vascular calcifications. No mediastinal or hilar adenopathy. Thoracic aorta is normal in caliber and enhancement. Scattered vascular calcifications. Esophagus is normal in caliber, without hiatal hernia. Bones and chest wall: No suspicious bony lesions. Ribs and thoracic spine appear intact throughout within the limits of motion artifact. Degenerative changes of the shoulders and spine. No axillary o r supraclavicular adenopathy. The thyroid is normal in size and there are no incidental findings. Abdomen: Likely nonobstructing nephrolith noted within the superior pole of the right kidney measurin g approximately 4 mm. IMPRESSION: Somewhat limited evaluation of the distal segmental and subsegmental vessels given lack of adequate o pacification and motion artifact. No central pulmonary embolus identified. Dependent atelectasis, otherwise no acute intrathoracic abnormality. Reviewed by: Earnest Hartman DO on 04/04/2021 1:20 PM DANA Approved by: Earnest Hartman DO on 04/04/2021 1:20 PM DANA Station ID: [id number]
[2021-04-04 14:25] VITALS: BP 174/85
[2021-04-04 14:28] LABS: B. PARAPERTUSSIS- RESP PCR PAN NOT DETECTED; B. PERTUSSIS- RESP PCR PANEL NOT DETECTED; C. PNEUMONIAE- RESP PCR PANEL NOT DETECTED; CORONAVIRUS 229E-RESP PCR NOT DETECTED; CORONAVIRUS HKU1-RESP PCR NOT DETECTED; CORONAVIRUS NL63-RESP PCR NOT DETECTED; CORONAVIRUS OC43-RESP PCR NOT DETECTED; HUMAN METAPNEUMOVIRUS NOT DETECTED; INFLUENZA A- RESP PCR PANEL NOT DETECTED; INFLUENZA B - RESP PCR PANEL NOT DETECTED; M. PNEUMONIAE- RESP PCR PANEL NOT DETECTED; PARAINFLUENZA VIRUS 1 NOT DETECTED; PARAINFLUENZA VIRUS 2 NOT DETECTED; PARAINFLUENZA VIRUS 3 NOT DETECTED; PARAINFLUENZA VIRUS 4 NOT DETECTED; RHINOVIRUS/ENTEROVIRUS NOT DETECTED; RSV- RESP PCR PANEL NOT DETECTED; SARS-CoV-2 -RESP PCR PANEL NOT DETECTED
--- NOTE | 2021-04-04 15:00 | ED Physician Documentation ---
PD HPI WOUND RECHECK - Stated complaint Stated Complaint: S/P HIP REPLACEMENT/HIP PX-SWOLLEN - Chief complaint Chief Complaint: Ext Problem - Histroy obtained from History obtained from: Patient - History of Present Illness Location: Left Uppper Extremity - Additional information Additional information: Patient is 75-year-old male presenting to the emergency department postoperative day 3 after total left hip replacement with increasing pain in left lower extremity. Reports taking both Percocet and tramadol at home with minimal pain relief. Reports was doing well up until yesterday evening when pain became so severe he was unable to sleep. States pain is exacerbated by motion. Denies any chest pain, shortness of breath, hemoptysis, abdominal pain, nausea, vomiting, diarrhea, constipation. Review of Systems Ten Systems: 10 systems reviewed and negative Constitutional: denies: Fever Cardiac: denies: Chest pain / pressure GI: denies: Abdominal Pain, Nausea, Vomiting : denies: Dysuria Musculoskeletal: reports: Extremity pain Neurologic: denies: Generalized weakness PD PAST MEDICAL HISTORY - Past Medical History Cardiovascular: None Respiratory: None Endocrine/Autoimmune: None GI: None : Benign prostate hypertrophy HEENT: Chronic vision loss Psych: None Musculoskeletal: Osteoarthritis Derm: None - Past Surgical History General: Appendectomy, Colonoscopy - Present Medications Home Medications: Ambulatory Orders Medication Instructions Recorded Confirmed Tamsulosin [Flomax] 0.4 mg PO DAILY 03/25/21 04/01/21 - Allergies Allergies/Adverse Reactions: Allergies Allergy/AdvReac Type Severity Reaction Status Date / Time No Known Drug Allergies Allergy Verified 04/04/21 09:34 - Social History Does the pt smoke?: No Smoking Status: Never smoker PD ED PE NORMAL - Vitals Vital signs reviewed: Yes - General General: Alert and oriented X 3 - HEENT HEENT: Atraumatic, PERRL - Neck Neck: Supple, no meningeal sign, No JVD - Cardiac Cardiac: RRR - Respiratory Respiratory: No respiratory distress - Abdomen Abdomen: Normal bowel sounds - Male Male : No: Deferred - Rectal Rectal: Deferred - Back Back: No spinal TTP - Extremities Extremities: Other (Left-sided surgical site is identified with dressing in place, clean, dry, no indications of infection.). No: No edema, No calf tenderness / cord - Neuro Neuro: Alert and oriented X 3, product development consultant 2-12 intact, No motor deficit Results - Vitals Vitals: Vital Signs - 24 hr 04/04/21 04/04/21 04/04/21 09:25 09:50 10:26 Temperature 37.4 C Heart Rate 113 H 100 102 H Respiratory 16 13 19 Rate Blood Pressure 142/77 H 169/76 H 159/76 H O2 Saturation 90 L 93 92 04/04/21 04/04/21 04/04/21 11:42 12:02 12:58 Temperature Heart Rate 96 74 105 H Respiratory 18 14 10 L Rate Blood Pressure 154/70 H 134/67 H 136/108 H O2 Saturation 100 98 98 04/04/21 04/04/21 13:10 14:25 Temperature Heart Rate 96 97 Respiratory 15 16 Rate Blood Pressure 142/79 H 174/85 H O2 Saturation 97 97 Oxygen O2 Source Nasal cannula - EKG (time done) 1400 Rate: Rate (enter#) (106) Rhythm: NSR [place]: Normal Intervals: Normal [place] QRS: Normal Ischemia: Normal ST segments Compare to prior EKG: Old EKG unavailable - Labs Labs: Laboratory Tests 04/04/21 04/04/21 04/04/21 09:53 09:53 12:05 WBC 15.2 H RBC 3.96 L Hgb 12.7 L Hct 37.6 L MCV 94.9 H MCH 32.1 H MCHC 33.8 RDW 13.3 Plt Count 194 MPV 9.5 Neut # (Auto) 11.5 H Lymph # (Auto) 2.0 [place] # (Auto) 1.5 H Eos # (Auto) 0.0 Baso # (Auto) 0.0 Absolute Nucleated RBC 0.00 Nucleated RBC % 0.0 Sodium 135 Potassium 4.9 Chloride 98 L Carbon Dioxide 26 Anion Gap 11.0 BUN 28 H Creatinine 1.2 Estimated GFR (MDRD) 59 L Glucose 127 H Calcium 9.1 Total Bilirubin 0.8 AST 59 H ALT 35 Alkaline Phosphatase 58 Total Protein 7.6 Albumin 3.8 Globulin 3.8 Albumin/Globulin Ratio 1.0 Urine Color YELLOW Urine Clarity CLEAR Urine pH 5.0 Ur Specific [place] >=1.030 H Urine Protein TRACE Urine Glucose (UA) NEGATIVE Urine Ketones 15 H Urine Occult Blood SMALL H Urine Nitrite NEGATIVE Urine Bilirubin NEGATIVE Urine Urobilinogen 0.2 (NORMAL) Ur Leukocyte Esterase NEGATIVE Urine RBC 0-5 Urine WBC 0-3 Ur Squamous Epith Cells RARE Squamous Urine Bacteria Rare Nasal Adenovirus (PCR) Nasal B. parapertussis DNA (PCR) Nasal Coronavir 229E PCR Nasal Coronavir HKU1 PCR Nasal Coronavir NL63 PCR Nasal Coronavir OC43 PCR Nasal Enterovir/Rhinovir PCR Nasal Influenza B PCR Nasal Influenza A PCR Nasal Parainfluen 1 PCR Nasal Parainfluen 2 PCR Nasal Parainfluen 3 PCR Nasal Parainfluen 4 PCR Nasal RSV (PCR) Nasal B.pertussis DNA PCR Nasal C.pneumoniae (PCR) Ab Human Metapneumo PCR Nasal M.pneumoniae (PCR) Nasal SARS-CoV-2 (PCR) 04/04/21 13:00 WBC RBC Hgb Hct MCV MCH MCHC RDW Plt Count MPV Neut # (Auto) Lymph # (Auto) [place] # (Auto) Eos # (Auto) Baso # (Auto) Absolute Nucleated RBC Nucleated RBC % Sodium Potassium Chloride Carbon Dioxide Anion Gap BUN Creatinine Estimated GFR (MDRD) Glucose Calcium Total Bilirubin AST ALT Alkaline Phosphatase Total Protein Albumin Globulin Albumin/Globulin Ratio Urine Color Urine Clarity Urine pH Ur Specific [place] Urine Protein Urine Glucose (UA) Urine Ketones Urine Occult Blood Urine Nitrite Urine Bilirubin Urine Urobilinogen Ur Leukocyte Esterase Urine RBC Urine WBC Ur Squamous Epith Cells Urine Bacteria Nasal Adenovirus (PCR) NOT DETECTED Nasal B. parapertussis DNA (PCR) NOT DETECTED Nasal Coronavir 229E PCR NOT DETECTED Nasal Coronavir HKU1 PCR NOT DETECTED Nasal Coronavir NL63 PCR NOT DETECTED Nasal Coronavir OC43 PCR NOT DETECTED Nasal Enterovir/Rhinovir PCR NOT DETECTED Nasal Influenza B PCR NOT DETECTED Nasal Influenza A PCR NOT DETECTED Nasal Parainfluen 1 PCR NOT DETECTED Nasal Parainfluen 2 PCR NOT DETECTED Nasal Parainfluen 3 PCR NOT DETECTED Nasal Parainfluen 4 PCR NOT DETECTED Nasal RSV (PCR) NOT DETECTED Nasal B.pertussis DNA PCR NOT DETECTED Nasal C.pneumoniae (PCR) NOT DETECTED Ab Human Metapneumo PCR NOT DETECTED Nasal M.pneumoniae (PCR) NOT DETECTED Nasal SARS-CoV-2 (PCR) NOT DETECTED PD MEDICAL DECISION MAKING - ED course Complexity details: reviewed old records, reviewed results, d/w patient ED course: With left-sided hip pain in setting of recent total hip replacement. Patient had low level tachycardia on arrival to the emergency department but was otherwise hemodynamically stable. Did report that he had a medication at home without relief. Ancef labs obtained demonstrated leukocytosis. Ultrasonography of the left lower extremity negative for any acute deep venous thrombosis. Urine analysis negative for any infection. He did have a low level tachycardia in the emergency department and was given fluid bolus which did seem to improve his elevated heart rate. Additionally he was given multiple doses of fentanyl and ultimately a 10 mg dose of Roxicodone. Given his elevated leukocytosis and low level tachycardia I did elect to obtain a CT PE protocol despite the absence of chest pain, notable shortness of breath or hemoptysis. This demonstrated some mild bibasilar atelectasis but was otherwise negative for acute intrathoracic abnormality. Patient was monitored in the emergency department for proximally 6 hours. Initially expressed reticence about going home, stated that he feared his pain would return and worsen and that he may not be able to care for himself. He was interviewed independently by social work. Please see their documentation for further detail. Ultimately he reported that he did feel comfortable going home and that he would have adequate social support as he is currently having a friend stay with him. At this time I will discharge home for careful follow-up with his surgeon on Tuesday. Is clear return precautions and follow-up instructions given prior to discharge. Departure - Departure Disposition: Home, Self Care Clinical Impression: Post-op pain Condition: Stable Instructions: ED Pain Control Ch Follow-Up: Inocencio Romero MD [Provider Admit Priv/Credential] - Comments: Thank you for allowing us to care for you today at [facility]. Please follow- up with Dr. Hiren lewis on Tuesday. If it anytime you have any new or worsening symptoms please not hesitate to return to the emergency department.
== END 2021-04-04 16:03 | disposition home or self-care (01) ==
LOC: ED 09:17
DX: G89.18 Other acute postprocedural pain (principal); M25.552 Pain in left hip; M79.605 Pain in left leg; Z96.642 Presence of left artificial hip joint; R00.0 Tachycardia, unspecified; J98.11 Atelectasis; D72.829 Elevated white blood cell count, unspecified; Z20.822 Contact with and (suspected) exposure to COVID-19
CPT/HCPCS: 36415; 71275; 80053; 81001; 85025; 87631; 93005; 93971; 96374; 96375; 96376; 99282; 99284; A9270; Q9967; 0202U

== ENCOUNTER 2021-05-19 10:00 | Outpatient (CLI) | payer MEDICARE, OTHER ==
--- NOTE | 2021-05-19 14:37 | XRAY Report ---
PROCEDURE: Hip w/Pelvis 1V LT INDICATIONS: TOTAL L HIP ARTHROPLASTY TECHNIQUE: AP pelvis with lateral view(s) of the left hip(s). COMPARISON: Radiograph dated 04/01/2021 and 12/07/2020 FINDINGS: Unchanged expected postoperative alignment of left hip arthroplasty. Lucencies at the bone metal inte rface of the acetabulum appear grossly unchanged since preoperative radiograph dated 12/07/2020. No ac inaja fracture. Chondral calcinosis seen in the pubis symphysis. Lower lumbar spondylosis and facet dis ease. Moderate right hip joint degeneration. IMPRESSION: Expected postoperative alignment of left hip arthroplasty. Reviewed by: Jeffrey Felix MD on 05/19/2021 2:36 PM PST Approved by: Jeffrey Felix MD on 05/19/2021 2:36 PM PST Station ID: [id number]
== END 2021-05-19 23:59 | disposition home or self-care (01) ==
LOC: DI.N 10:00
PROVIDERS: ATTEND Orthopaedic Surgery
DX: Z96.642 Presence of left artificial hip joint (principal)

== ENCOUNTER 2022-04-27 10:46 | Outpatient (CLI) | payer MEDICARE, OTHER ==
--- NOTE | 2022-04-27 13:43 | XRAY Report ---
PROCEDURE: Hip 2 View LT INDICATIONS: LEFT HIP ARTHROPLASTY TECHNIQUE: 2 views of the hip were acquired. COMPARISON: 05/19/2021 FINDINGS: Bones: No fractures or dislocations. There are postoperative changes of total left hip replacement. No perihardware lucency. Heterotopic ossification superior to the greater trochanter is unchanged. Th e right hip has severe degenerative changes consistent with osteoarthritis. No suspicious bony lesion s. The visualized pelvic ring appears intact. Soft tissues: No suspicious soft tissue calcifications or masses. IMPRESSION: 1. Postoperative changes of total left hip replacement without complication. 2. Severe degenerative changes of the right hip consistent with osteoarthritis. Reviewed by: Thomas Orr on 04/27/2022 1:42 PM PST Approved by: Thomas Orr on 04/27/2022 1:42 PM PST Station ID: [id number]
== END 2022-04-27 10:47 | disposition home or self-care (01) ==
LOC: DI.WOS 10:46
PROVIDERS: ATTEND Orthopaedic Surgery
DX: Z09 Encounter for follow-up examination after completed treatment for conditions other than malignant neoplasm (principal); Z96.642 Presence of left artificial hip joint